=== PATIENT | male | born 2000 | race Caucasian/White ===

== ENCOUNTER 2022-06-01 01:28 | Emergency (ER) | payer OTHER ==
[~2022-06-01] VITALS: Ht 182.9 cm; Wt 79.4 kg
[2022-06-01 02:05] VITALS: BP_SYST 119
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
[2022-06-01] MEDS ORDERED: iohexoL 350 mgI/mL, 100 ML INFUS..BTL IV ONE (04:12)
--- NOTE | 2022-06-01 04:21 | NUR ---
CT consent signed. Information provided by patient.
[2022-06-01 04:38] LABS: CALCIUM 9.2 mg/dL (8.4-11.0); CREATININE 0.98 mg/dL (0.55-1.30); POTASSIUM 3.7 mmol/L (3.5-5.1)
[2022-06-01 04:43] LABS: ALBUMIN 4.4 g/dL (3.4-4.8); TOTAL BILIRUBIN 0.6 mg/dL (0.0-1.0)
[2022-06-01 06:24] LABS: HEMATOCRIT 43.8 % (36-54); MEAN CORPUSCULAR VOLUME 86 fL (79.0-98.0); PLATELET COUNT (AUTO) 175 K/uL (130-430); RED BLOOD CELL COUNT(AUTO) 5.09 MIL/uL (4.2-6.2); RED CELL DISTRIBUTION WIDTH 12.7 % (9.0-15.0); WHITE BLOOD COUNT (AUTO) 12.8 K/uL (4.8-10.8)
--- NOTE | 2022-06-01 07:12 | NUR ---
gave report to FELICIA Engle endorsed pt in stable condition all questions answered
--- NOTE | 2022-06-01 07:15 | NUR ---
ER Dr. Renner at bedside examining patient.
[2022-06-01 07:52] LABS: HEMATOCRIT 42.8 % (36-54); MEAN CORPUSCULAR VOLUME 87 fL (79.0-98.0); PLATELET COUNT (AUTO) 171 K/uL (130-430); RED BLOOD CELL COUNT(AUTO) 4.94 MIL/uL (4.2-6.2); WHITE BLOOD COUNT (AUTO) 12.8 K/uL (4.8-10.8)
--- NOTE | 2022-06-01 08:20 | NUR ---
Pt c/o pain to site of injury right ankle 8/10 pain scale. Md notified, medicated per order.
[2022-06-01] MEDS ORDERED: ONDANSETRON HCL 4 MG/2 ML VIAL IVP ONE (08:30)
[2022-06-01] MEDS ORDERED: MORPHINE 4 MG INJ. 4 MG/ML VIAL IVP ONE (08:30)
[2022-06-01] MEDS ORDERED: NACL 0.9% 1,000 ML IV ONE (08:30)
[2022-06-01 08:40] LABS: BILIRUBIN,URINE NEGATIVE (NEGATIVE); BLOOD, URINE NEGATIVE (NEGATIVE); CLARITY/URINE CLEAR (CLEAR); COLOR,URINE YELLOW (YELLOW); GLUCOSE,URINE NEGATIVE (NEGATIVE); KETONES,URINE NEGATIVE (NEGATIVE); LEUKOCYTE ESTERASE ,URINE NEGATIVE (NEGATIVE); NITRITE, URINE NEGATIVE (NEGATIVE); PROTEIN URINE NEGATIVE (NEGATIVE); UROBILINOGEN,URINE 0.2 (0.2-1.0)
--- NOTE | 2022-06-01 11:33 | NUR ---
Patient to be transferred to [facility]. Is being transferred due to higher level of care. Receiving facility has accepting physician and available space. ER Dr. Zurdo MD physician has signed transfer form. Patient or responsible libertarian has agreed to transfer and signed form. Patient belongings inventoried and will be sent with patient. Copy of nursing notes, lab reports, EKG, Physicians Orders and X-rays to be sent with patient. Report called to FELICIA Taylor for transfer. Receiving physician is Dr. Ha. [facility] been called for transfer. ETA is [id number].
[2022-06-01 11:36] VITALS: BP_SYST 137
[2022-06-01 16:18] LABS: HEMOGLOBIN 15.3 g/dL (14.0-18.0); MEAN CORPUSCULAR HEMOGLOBIN 31 pg (27-31); MEAN CORPUSCULAR HGB CONC 34 % (32-36)
[2022-06-02 12:40] LABS: HEMOGLOBIN 15.1 g/dL (14.0-18.0)
[2022-06-02 12:41] LABS: MEAN CORPUSCULAR HEMOGLOBIN 30 pg (27-31); MEAN CORPUSCULAR HGB CONC 33 % (32-36)
== END 2022-06-01 16:15 | disposition home or self-care (01) ==
LOC: SED 01:28
DX: J93.9 Pneumothorax, unspecified (principal); M25.571 Pain in right ankle and joints of right foot; Z79.899 Other long term (current) drug therapy; Z20.822 Contact with and (suspected) exposure to COVID-19
CPT/HCPCS: 99285; 70450; 96374; 71045; 96361; 96375; 87426; 80053; 83690; 85014; 85049; 86886; 86900; 86901; 85048; 36415; 73610; 70498; 71260; 74177; 81003; 76376; 83051; Q9967 ×2; J2405; J2270; J7030